=== PATIENT | male | born 1950 | race Caucasian/White ===

== ENCOUNTER 2016-10-28 08:31 | Day surgery (SDC) | payer MEDICARE, OTHER ==
[~2016-10-28 08:31] MED LIST: CARDCD180 PO; CARTIA XT180 MG/24 PO; DITRO5 PO; ELIQUIS 5 MG TAB5 MG PO; LOP50 PO; MAX25 PO; PRIN10 PO; PROTONIX PO; RANITIDINE300 MG PO; VITAMIN B-625 MG OR; ZOCOR10 PO; ZYRTEC ALLGY10 MG PO
== END 2016-10-28 23:59 | disposition home health service (06) ==
LOC: SDC 08:31
PROVIDERS: Ophthalmology
PROC: 085K3ZZ Destruction of Left Lens, Percutaneous Approach (ICD-10-PCS; principal; 2016-10-28 08:00)
DX: H26.40 Unspecified secondary cataract (principal); I48.91 Unspecified atrial fibrillation; I10 Essential (primary) hypertension; E78.00 Pure hypercholesterolemia, unspecified; K21.9 Gastro-esophageal reflux disease without esophagitis; Z87.442 Personal history of urinary calculi; Z98.890 Other specified postprocedural states
CPT/HCPCS: A9270-GY